=== PATIENT | male | born 1970 | race Caucasian/White ===

== ENCOUNTER 2021-06-24 11:27 | Emergency (ER) | payer BC ==
[2021-06-24 11:50] VITALS: BMI 26.4
[2021-06-24] MEDS ORDERED: BEBTELOVIMAB (EUA) 175 MG/2 ML VIAL IVPUSH ONE (12:37)
[2021-06-24 14:28] VITALS: BP 135/78; PULSE 58; TEMP 97.8
== END 2021-06-24 14:35 | disposition home or self-care (01) ==
LOC: JER 11:27 → JCOVINFU 11:27
DX: U07.1 COVID-19 (principal)
CPT/HCPCS: 99284-25; M0222; Q0222